=== PATIENT | female | born 1970 | race Caucasian/White ===

== ENCOUNTER 2016-09-01 17:16 | Emergency (ER) | payer OTHER, MEDICARE ==
[~2016-09-01] VITALS: Ht 162.6 cm; Wt 56.7 kg
[2016-09-01 17:19] VITALS: BP 133/86
== END 2016-09-01 19:57 | disposition admitted as inpatient to this hospital (09) ==
LOC: ERH 17:16
DX: M62.838 Other muscle spasm (principal)